=== PATIENT | male | born 1930 | race Caucasian/White ===

== ENCOUNTER 2019-12-23 11:32 | Inpatient (IN) | payer OTHER, SELFPAY ==
[~2019-12-23] VITALS: Ht 175.3 cm; Wt 78.9 kg
[2019-12-23 11:36] VITALS: BP_SYST 95
[2019-12-23] MEDS ORDERED: NACL 0.9% 1,000 ML IV ONE ×2 (11:45→13:00)
[2019-12-23 12:14] LABS: BILIRUBIN,URINE NEGATIVE (NEGATIVE); BLOOD, URINE 3+ (NEGATIVE); CLARITY/URINE CLEAR (CLEAR); COLOR,URINE YELLOW (YELLOW); GLUCOSE,URINE NEGATIVE (NEGATIVE); KETONES,URINE NEGATIVE (NEGATIVE); LEUKOCYTE ESTERASE ,URINE TRACE (NEGATIVE); NITRITE, URINE NEGATIVE (NEGATIVE); PROTEIN URINE NEGATIVE (NEGATIVE); UROBILINOGEN,URINE 0.2 (0.2-1.0)
[2019-12-23 12:24] LABS: BASOPHILS # (AUTO) 0.3 K/uL (0.0-0.2); BASOPHILS % (AUTO) 1.3 % (0.0-2.0); EOSINOPHILS % (AUTO) 0.1 % (0.0-4.0); HEMATOCRIT 37.3 % (36-54); HEMOGLOBIN 12.3 g/dL (14.0-18.0); LYMPHOCYTES # (AUTO) 0.6 K/uL (1.0-5.5); LYMPHOCYTES % (AUTO) 3.1 % (20.5-51.5); MEAN CORPUSCULAR HEMOGLOBIN 33 pg (27-31); MEAN CORPUSCULAR HGB CONC 33 % (32-36); MEAN CORPUSCULAR VOLUME 100 fL (79.0-98.0); MONOCYTES # (AUTO) 0.8 K/uL (0.0-1.0); MONOCYTES % (AUTO) 3.7 % (1.7-9.3); NEUTROPHILS # (AUTO) 18.8 K/uL (1.8-7.7); NEUTROPHILS % (AUTO) 91.8 % (40.0-70.0); PLATELET COUNT (AUTO) 236 K/uL (130-430); RED BLOOD CELL COUNT(AUTO) 3.74 MIL/uL (4.2-6.2); RED CELL DISTRIBUTION WIDTH 14.5 % (9.0-15.0); WHITE BLOOD COUNT (AUTO) 20.5 K/uL (4.8-10.8)
[2019-12-23 12:26] LABS: BACTERIA,URINE FEW /HPF (None Seen); MUCUS,URINE 1+ /LPF (None Seen)
[2019-12-23 12:38] LABS: ANION GAP 7 (5-15); CALCIUM 7.7 mg/dL (8.4-11.0); CHLORIDE 108 mmol/L (98-107); CREATININE 1.72 mg/dL (0.55-1.30); GLUCOSE 106 mg/dL (70-99); POTASSIUM 4.3 mmol/L (3.5-5.1); SODIUM SERUM 139 mmol/L (136-145); UREA NITROGEN, BLOOD 29 mg/dL (8-21)
[2019-12-23 12:43] LABS: INR 1.1 (0.80-1.20); PROTHROMBIN TIME 10.8 SECS (9.5-12.5)
[2019-12-23 12:44] LABS: ALANINE AMINOTRANSFERASE 13 U/L (12-78); ALBUMIN 2.7 g/dL (3.4-4.8); ASPARTATE AMINOTRANSFERASE 17 U/L (10-37); TOTAL BILIRUBIN 2.1 mg/dL (0.0-1.0)
[2019-12-23] MEDS ORDERED: LEVOFLOXACIN 500 MG/D5W 100 ML IV ONE (13:00)
[2019-12-23] MEDS ORDERED: CARB-61 PO (13:44)
[2019-12-23] MEDS ORDERED: LOPE2CAP PO (13:44)
[2019-12-23] MEDS ORDERED: ASA81 PO (13:44)
[2019-12-23] MEDS ORDERED: LIP40 PO (13:44)
[2019-12-23] MEDS ORDERED: DONE5TAB33 PO (13:44)
[2019-12-23] MEDS ORDERED: LOSA50TA3 PO (13:44)
[2019-12-23] MEDS ORDERED: TAMS-11 PO (13:44)
[2019-12-23] MEDS ORDERED: CALC117719 PO (13:44)
[2019-12-23] MEDS ORDERED: ACET-2165 PO (13:44)
[2019-12-23] MEDS ORDERED: ACET325C6 PO (13:44)
[2019-12-23] MEDS ORDERED: FURO-150 PO (13:44)
[2019-12-23] MEDS: NACL 0.9% 1,000 ML IV SCH ×2 (14:33→23:27)
[2019-12-23] MEDS ORDERED: ACETAMINOPHEN 325 MG TABLET PO SCH (17:15)
[2019-12-24] MEDS: NACL 0.9% 1,000 ML IV SCH ×3 (07:45→22:17)
[2019-12-24] MEDS: ASPIRIN 81 MG TAB.CHEW PO SCH (09:00)
[2019-12-24] MEDS: LEVOFLOXACIN 250 MG/D5W 50 ML IV SCH (09:00)
[2019-12-25 02:00] VITALS: BP_SYST 131
[2019-12-25 05:25] VITALS: BP_SYST 129
[2019-12-25] MEDS: NACL 0.9% 1,000 ML IV SCH ×3 (05:30→22:00)
[2019-12-25 07:24] LABS: BASOPHILS # (AUTO) 0.1 K/uL (0.0-0.2); BASOPHILS % (AUTO) 0.9 % (0.0-2.0); EOSINOPHILS # (AUTO) 0.1 K/uL (0.0-0.4); EOSINOPHILS % (AUTO) 1.5 % (0.0-4.0); HEMATOCRIT 35.5 % (36-54); HEMOGLOBIN 11.9 g/dL (14.0-18.0); LYMPHOCYTES # (AUTO) 1.3 K/uL (1.0-5.5); LYMPHOCYTES % (AUTO) 14.3 % (20.5-51.5); MEAN CORPUSCULAR HEMOGLOBIN 33 pg (27-31); MEAN CORPUSCULAR HGB CONC 34 % (32-36); MEAN CORPUSCULAR VOLUME 99 fL (79.0-98.0); MONOCYTES # (AUTO) 0.6 K/uL (0.0-1.0); MONOCYTES % (AUTO) 6.5 % (1.7-9.3); NEUTROPHILS % (AUTO) 76.8 % (40.0-70.0); PLATELET COUNT (AUTO) 191 K/uL (130-430); RED BLOOD CELL COUNT(AUTO) 3.58 MIL/uL (4.2-6.2); RED CELL DISTRIBUTION WIDTH 14.1 % (9.0-15.0); WHITE BLOOD COUNT (AUTO) 9.1 K/uL (4.8-10.8)
[2019-12-25 07:36] LABS: ALANINE AMINOTRANSFERASE 21 U/L (12-78); ALBUMIN 2.4 g/dL (3.4-4.8); ANION GAP 11 (5-15); ASPARTATE AMINOTRANSFERASE 15 U/L (10-37); CALCIUM 7.6 mg/dL (8.4-11.0); CHLORIDE 110 mmol/L (98-107); GLUCOSE 82 mg/dL (70-99); POTASSIUM 3.7 mmol/L (3.5-5.1); SODIUM SERUM 142 mmol/L (136-145); TOTAL BILIRUBIN 1.6 mg/dL (0.0-1.0); UREA NITROGEN, BLOOD 19 mg/dL (8-21)
[2019-12-25 09:00] VITALS: BP_SYST 135
[2019-12-25] MEDS: ASPIRIN 81 MG TAB.CHEW PO SCH (09:00)
[2019-12-25] MEDS: LEVOFLOXACIN 250 MG/D5W 50 ML IV SCH (09:00)
[2019-12-25] MEDS ORDERED: LEVO500T89 PO (09:32)
[2019-12-25 12:30] VITALS: BP_SYST 139
[2019-12-25 17:22] VITALS: BP_SYST 142
[2019-12-25 20:00] VITALS: BP_SYST 166
[2019-12-26] VITALS: BP_SYST 137
[2019-12-26 08:35] VITALS: BP_SYST 151
[2019-12-26] MEDS: NACL 0.9% 1,000 ML IV SCH ×2 (08:35→15:37)
[2019-12-26] MEDS: LEVOFLOXACIN 250 MG/D5W 50 ML IV SCH (08:35)
[2019-12-26] MEDS: ASPIRIN 81 MG TAB.CHEW PO SCH (08:36)
[2019-12-26 12:00] VITALS: BP_SYST 142
[2019-12-26 15:55] VITALS: BP_SYST 147
[2019-12-26 16:07] VITALS: BP_SYST 147
== END 2019-12-26 20:20 | DRG 871 ==
LOC: SED 11:32 → STU 16:58 → SMU 12-25 01:21 → STU 12-25 01:37 → SMU 12-25 02:07
PROVIDERS: ADMIT Internal Medicine Hospice and Palliative Medicine; ATTEND Internal Medicine Hospice and Palliative Medicine
DX: A41.9 Sepsis, unspecified organism (principal); E43 Unspecified severe protein-calorie malnutrition; N39.0 Urinary tract infection, site not specified; G20 Parkinson's disease; R74.0 Nonspecific elevation of levels of transaminase and lactic acid dehydrogenase [LDH]; I25.10 Atherosclerotic heart disease of native coronary artery without angina pectoris; N18.9 Chronic kidney disease, unspecified; F02.80 Dementia in other diseases classified elsewhere, unspecified severity, without behavioral disturbance, psychotic disturbance, mood disturbance, and anxiety; Z68.25 Body mass index [BMI] 25.0-25.9, adult; Z88.0 Allergy status to penicillin; Z79.82 Long term (current) use of aspirin; Z79.899 Other long term (current) drug therapy; Z95.1 Presence of aortocoronary bypass graft; Z03.818 Encounter for observation for suspected exposure to other biological agents ruled out
CPT/HCPCS: 36415; 71045; 80053; 81000-TC; 83605; 84484; 85025; 85610-TC; 85730-TC; 86710; 87040-TC; 87086; 93005; 96361; 96365; 96366; 99285; G0378; J1956; J7030; U0003-CS